=== PATIENT | female | born 1955 | race Caucasian/White ===

== ENCOUNTER 2021-05-30 07:04 | Day surgery (SDC) | payer MEDICARE, SELFPAY ==
[2021-05-26 11:43] VITALS: BMI 21.1
--- NOTE | 2021-05-28 15:02 | HO.ANESPROP2 ---
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 knee replacement Hx of colonoscopy Social History Social History Are you a primary healthcare network consultant to a significant other at home: No Do you presently have visiting nurse or other home services: No Patient Tobacco Use Status: Never used Tobacco Are you DNR?: No Advance Directives: No Advance Directives Information Provided: No Advance Directives on File: No Meds Allergies Allergy/AdvReac Type Severity Reaction Status Date / Time simvastatin Allergy Unknown Verified 05/26/21 11:42 Home Medications Medication Instructions Recorded Confirmed Last Taken Type atorvastatin 1 tab PO DAILY 05/26/21 05/26/21 Unknown History diazepam 1 tab PO BID 05/26/21 05/26/21 Unknown History famciclovir 1 tab PO BID 05/26/21 05/26/21 Unknown History lisinopril 1 tab PO DAILY 05/26/21 05/26/21 05/30/21 History multivitamin 1 tab PO DAILY 05/26/21 05/26/21 Unknown History ondansetron HCl 1 tab PO Q8H 05/26/21 05/26/21 Unknown History oxycodone 1 tab PO Q6H 05/26/21 05/26/21 05/30/21 History solifenacin 1 tab PO DAILY 05/26/21 05/26/21 Unknown History Exam Exam Date and Time: May 28, 2021 1502 Height,Weight and Vital Signs: Height 5 ft 7 in Weight 61.235 kg Assessment and Plan Assessment Anesthesia Assessment: Chart Reviewed Documented by User: Genet Sloan 05/30/21 08:16 [facility] Past Medical History Medical History Back pain Crush fracture of lumbar vertebra Frequent headaches HTN (hypertension) Hyperlipidemia Surgical History Surgical History History of back surgery History of bilateral total hip arthroplasty History of total left knee replacement Hx of colonoscopy Social History Social History Are you a primary healthcare network consultant to a significant other at home: No Do you presently have visiting nurse or other home services: No Patient Tobacco Use Status: Never used Tobacco Are you DNR?: No Advance Directives: No Advance Directives Information Provided: No Advance Directives on File: No Meds Allergies Allergy/AdvReac Type Severity Reaction Status Date / Time simvastatin Allergy Unknown Verified 05/26/21 11:42 Home Medications Medication Instructions Recorded Confirmed Last Taken Type atorvastatin 1 tab PO DAILY 05/26/21 05/26/21 Unknown History diazepam 1 tab PO BID 05/26/21 05/26/21 Unknown History famciclovir 1 tab PO BID 05/26/21 05/26/21 Unknown History lisinopril 1 tab PO DAILY 05/26/21 05/26/21 05/30/21 History multivitamin 1 tab PO DAILY 05/26/21 05/26/21 Unknown History ondansetron HCl 1 tab PO Q8H 05/26/21 05/26/21 Unknown History oxycodone 1 tab PO Q6H 05/26/21 05/26/21 05/30/21 History solifenacin 1 tab PO DAILY 05/26/21 05/26/21 Unknown History Exam Airway Mallampati Class: II Neck ROM: Full Heart: RRR Lungs: CTA
[2021-05-30 07:14] VITALS: BP 124/76; PULSE 84; RESP 16; TEMP 36.2; O2SAT 99
[2021-05-30] MEDS: Lactated Ringers 1,000 ML 100 ML IVCONT (07:25)
--- NOTE | 2021-05-30 08:04 | MHC.SHP ---
Pre-Procedural Eval Section A Date of Service: 05/30/21 Section B Chief Complaint: screening Details of Present Illness: screening, see H&P no changes Relevant Family History (Specify if Yes): No Relevant Social History: None Present Medications: see Short Stay Collaborative assessment Medical History: No relevant PMH Allergies: Allergies Allergy/AdvReac Type Severity Reaction Status Date / Time simvastatin Allergy Unknown Verified 05/26/21 11:42 Review of Systems Sugical H&P ROS: Negative: Constitution, Cardiovascular, Respiratory, Neurological, Psychiatric, Hem-Onc, Allergic/Immunologic, Gastrointestinal, Genitourinary, Musculoskeletal, Integumentary, Endocrine and Eyes/Ears/Nose/Throat Exam Surgical H&P Exam: Normal: HEENT, Normal: Heart, Normal: Lungs, Normal: Extremities, Normal: Abdomen, Normal: Skin and Normal: Neurological Plan Diagnosis/Plan: Unchanged I have reviewed the history and physical and performed a pertinent physical examination on my patient. No changes have occurred unless specified.
[2021-05-30 08:45] VITALS: BP 91/52; PULSE 68; RESP 14; TEMP 36.3; O2SAT 98
--- NOTE | 2021-05-30 08:45 | P.BOP_ITS ---
Brief Operative Note Date of Service: 05/30/21 Pre-op diagnosis: screening Post-op diagnosis: same (colitis) Procedure: colonoscopy Surgeon: Dawson Gooden Anesthesia: MAC Was an [employer] used for this Procedure?: No Estimated blood loss (mL): 2 Pathology: other (bxs 30 cm) Condition: stable Disposition: PACU
[2021-05-30 09:00] VITALS: BP 113/63; PULSE 60; RESP 18; TEMP 36.1; O2SAT 97
[2021-05-30 09:12] VITALS: BP 104/58; PULSE 53; RESP 8; O2SAT 98
--- NOTE | 2021-05-30 11:16 | HO.POSTANES ---
Post Anesthesia Evaluation Post Anesthesia Evaluation Vital Signs: Vital Signs Temp Pulse Resp BP Pulse Ox 05/30/21 09:12 53 8 L 104/58 L 98 05/30/21 09:00 96.9 F 60 18 113/63 97 05/30/21 08:45 97.3 F 68 14 91/52 L 98 05/30/21 07:14 97.2 F 84 16 124/76 99 Anesthesia: Monitored Mental Status: Awake Pain Control: Satisfactory Nausea/Vomiting: None Hydration: Adequate Anesthesia-Related Issues: No Anes. Related Issues
--- NOTE | 2021-05-30 18:52 | OP_ITS ---
SURGEON: Dawson Gooden MD INDICATIONS: Colon cancer screening. PREOPERATIVE DIAGNOSIS: POSTOPERATIVE DIAGNOSIS: PROCEDURE PERFORMED: Colonoscopy to the terminal ileum with biopsy. ESTIMATED BLOOD LOSS: COMPLICATIONS: ANESTHESIA: ASSISTANTS: SPECIMENS: MEDICATIONS: Monitored anesthesia care. DESCRIPTION OF PROCEDURE: History and physical performed. The risks and benefits of the procedure were explained to the patient. Informed consent was obtained. The patient was placed in left lateral decubitus position. A digital rectal exam was performed and was found to be normal. The Olympus pediatric video colonoscope was introduced into the rectum and advanced to the cecum without difficulty. The cecum was identified by transillumination, palpation, and identification of the ileocecal valve. Examination was performed and the scope was removed. She tolerated the procedure well and was taken to recovery area in stable condition. FINDINGS: The terminal ileum was briefly examined and appeared normal. The visualized colonic mucosa was within normal limits without evidence of masses or ulcers except in the sigmoid, where there was an approximately 4 cm area of focal ulceration that appears quite superficial, consistent with a focal area of ischemic colitis. This was biopsied. No polyps were identified. There was moderate sigmoid diverticulosis. There was some stool in the descending and sigmoid colon limiting the examination for detection of small polyps. This was washed and suctioned as best possible. Retroflexed examination was normal. IMPRESSION: 1. Colitis. 2. Diverticulosis. RECOMMENDATIONS: 1. Follow up the biopsy results. 2. This focal area of colitis is likely ischemic and will not need any specific therapy. 3. Routine screening colonoscopy in 10 years, pending biopsy results and clinical course. MD TRENT Cavazos/PHOEBE / [id number]
== END 2021-05-30 09:49 | disposition home or self-care (01) ==
PROVIDERS: Visit Provider Internal Medicine Gastroenterology
PROC: 0DJD8ZZ Inspection of Lower Intestinal Tract, Via Natural or Artificial Opening Endoscopic (ICD-10-PCS; CPT 45378; principal; 2021-05-30 08:10)
DX: Z12.11 Encounter for screening for malignant neoplasm of colon (principal); K52.9 Noninfective gastroenteritis and colitis, unspecified; K57.30 Diverticulosis of large intestine without perforation or abscess without bleeding; I10 Essential (primary) hypertension; E78.5 Hyperlipidemia, unspecified; Z79.899 Other long term (current) drug therapy; Z88.8 Allergy status to other drugs, medicaments and biological substances
CPT/HCPCS: 45380; 88305